=== PATIENT | male | born 1940 | race Caucasian/White ===

== ENCOUNTER 2020-04-04 18:04 | Outpatient (CLI) | payer MEDICARE, OTHER, SELFPAY ==
[2020-04-04 18:49] LABS: Basophils # 0.1 10^3/uL (0.0-0.1); Basophils % 0.6 %; Eosinophils # 0.2 10^3/uL (0.0-0.8); Eosinophils % 2.2 %; Hematocrit 45.1 % (42.0-52.0); Hemoglobin 14.1 g/dL (11.7-16.6); Lymphocytes # 1.5 10^3/uL (0.8-4.8); Lymphocytes % 13.8 %; Mean Corpuscular HGB Conc 31.3 g/dL (30.0-36.0); Mean Corpuscular Hemoglobin 28.4 pg (28.0-34.0); Mean Corpuscular Volume 90.9 fL (80-94); Monocytes # 0.6 10^3/uL (0.2-0.9); Monocytes % 5.1 %; Neutrophils # 8.35 10^3/uL (1.8-7.7); Neutrophils % 78.1 %; Nucleated Red Blood Cells % 0 %; Platelet Count 251 10^3/cmm (130-400); Red Blood Count 4.96 10^6/uL (4.1-5.3); Red Cell Distribution Width 15.1 % (12.1-15.1); White Blood Count 10.7 10^3/uL (4.0-10.0)
[2020-04-04 19:16] LABS: Chol HDL Ratio 3.91 mg/dL (1.0-5.00); Cholesterol 137 mg/dL (0-200); HDL Cholesterol 35 mg/dL (60-100); LDL Cholesterol Calculated 76 mg/dL (50-129); LDL HDL Ratio 2.17 RATIO (0.00-3.22); NT Pro B Type Natriuretic Pept 312 pg/mL (0-450); Triglycerides 132 mg/dL (0-150)
[2020-04-04 21:53] LABS: Estmated Average Glucose 148; Hemoglobin A1C 6.8 % (4.0-6.0)
== END 2020-04-04 18:05 | disposition home or self-care (01) ==
LOC: LAB 18:06
PROVIDERS: PCP Family Medicine; Visit Provider Nurse Practitioner Family
DX: I50.9 Heart failure, unspecified (principal)
CPT/HCPCS: 80061; 83036; 83880; 85025

== ENCOUNTER 2020-05-01 16:03 | Outpatient (CLI) | payer MEDICARE, OTHER, SELFPAY ==
[2020-05-01 17:08] LABS: Alanine Aminotransferase 11 U/L (0-41); Albumin Level 3.7 g/dL (3.5-5.2); Alkaline Phosphatase 100 IU/L (40-130); Anion Gap 14.8 (5-19); Aspartate Amino Transferase 14 U/L (0-40); Blood Urea Nitrogen 22 mg/dL (8-23); Calcium 8.6 mg/dL (8.5-10.5); Carbon Dioxide 29 mmol/L (22-29); Chloride 98 mmol/L (98-107); Globulin 3.5 g/dL (1.3-4.6); Glucose 223 mg/dL (65-115); Osmolality Calculated 294 mOsm/kg (285-295); Potassium 4.8 mmol/L (3.5-5.1); Sodium 137 mmol/L (136-145); Total Bilirubin 0.4 mg/dL (0.15-1.2); Total Protein 7.2 g/dL (6.6-8.7)
== END 2020-05-01 16:04 | disposition home or self-care (01) ==
LOC: LAB 16:08
PROVIDERS: PCP Family Medicine; Visit Provider Family Medicine
DX: I11.0 Hypertensive heart disease with heart failure (principal)
CPT/HCPCS: 80053

== ENCOUNTER 2021-03-30 11:55 | Emergency (ER) | payer MEDICARE, OTHER, SELFPAY ==
[2021-03-30 12:09] VITALS: BP 150/67; PULSE 60; RESP 18; TEMP 36.7; O2SAT 96; BMI 52.7
[2021-03-30 12:19] LABS: Glucose Point of Care 92 mg/dL (70-110)
[2021-03-30 12:27] VITALS: BP 160/68; PULSE 64; PULSE 76; RESP 18; TEMP 36.7; O2SAT 97
--- NOTE | 2021-03-30 12:45 | PC.NURSE ---
Bilateral lower extremities are wrapped to reduce swelling. No open areas noted, skin is dark in color. reports they have been that way for a long time. Legs are re wrapped. Pulse and sensation WNL before and after application.
--- NOTE | 2021-03-30 12:46 | ED_ITS ---
HPI - Extremity Problem General: Chief complaint: Extremity Injury, Lower Stated complaint: LACERATION BACK OF LEGS Time Seen by Provider: 03/30/21 12:04 History of Present Illness: HPI Narrative: Patient is an 80-year-old male comes to the ED with lesions on back of thighs bilaterally. Patient is morbidly obese and has a past medical history of hypertension, heart failure, diabetes type 2. Patient has been put on 2 L of oxygen at home, but patient says he does not use it all the time. Patient is unable to ambulate and gets around using a wheelchair. is present and says patient has been sitting in his wheelchair a lot over the past several weeks and approximately 10 days ago which she started noticing some skin breakdown in the back of the thighs bilaterally. Patient is currently in the process of getting a home health aide to come out and assist with care for patient during the week. Patient also has a hospital bed at his home that he refuses to use. Associated symptoms: Deny chest pain, fever(s) or rash Review of Systems Const: Denies: fever(s), chills or fatigue Eyes: Denies: change in vision or eye discomfort ENMT: Denies: throat pain, odynophagia, nasal discharge or nasal congestion Card: Denies: chest pain, palpitations, edema, swelling of feet/ankles, dyspnea on exertion or orthopnea Resp: Denies: dyspnea, productive cough or non-productive cough GI: Denies: abdominal pain, nausea, vomiting, diarrhea, constipation or hematochezia : Denies: flank pain, difficulty urinating, dysuria or hematuria Musc: Denies: neck pain, back pain or extremity swelling Skin/Breast: Reports: new lesions (early stage ulcers on back of thighs bilaterally); Denies: rash Neuro: Denies: headache(s), numbness in extremities or weakness in extremities PFS ED PFSH: Family History Mother Stroke Social History Smoking and tobacco status: former smoker Alcohol intake: never Household members: spouse Marital status: Physical Exam Const: COMMON NORMALS: patient oriented x3 and alert GENERAL APPEARANCE: cooperative and comfortable NUTRITIONAL APPEARANCE: obese morbidly obese HENMT: COMMON NORMALS: normocephalic HEAD & SCALP: normocephalic MOUTH: Normal oral and palatal mucosa present THROAT: posterior oropharynx normal and uvula midline Neck/C-Spine: COMMON NORMALS: supple GENERAL: Yes normal visual inspection Resp: COMMON NORMALS: normal respiratory effort, No retractions, No use of accessory muscles and clear to auscultation bilaterally AUSCULTATION: clear t o auscultation bilaterally Cardio: COMMON NORMALS: regular rate, regular rhythm, S1 normal heart sound present, S2 normal heart sound present, No gallops present (Cardio), No clicks present (Cardio), No murmurs present (Cardio) and Peripheral pulses 2+ throughout RATE: regular rate RHYTHM: regular rhythm HEART SOUNDS: S1 normal heart sound present and S2 normal heart sound present PERIPHERAL PULSES: Peripheral pulses 2+ throughout GI: COMMON NORMALS: Normal to inspection, nondistended, normoactive bowel sounds present, Soft to palpation, non-tender and no masses PALPATION: Yes Soft to palpation : COMMON NORMALS: Yes no CVA tenderness BLADDER/KIDNEY EXAM: Yes no CVA tenderness Back/Pelvis: COMMON NORMALS: no CVA tenderness Extremity: NARRATIVE EXTREMITY EXAM: Patient has early stage I pressure ulcers with limited skin breakdown on bilateral thighs. There is some surrounding erythema. No purulent drainage noted. Mild tenderness to palpation. GENERAL: Yes normal exam except as noted Neuro: COMMON NORMALS: patient oriented x3 and moves all extremities SENSORIUM/ORIENTATION: Yes alert Skin: NARRATIVE SKIN EXAM: Patient has early stage I pressure ulcers with limited skin breakdown on bilateral thighs. There is some surrounding erythema. No purulent drainage noted. Mild tenderness to palpation. GENERAL SKIN EXAM: dry skin Course Reevaluation(s): Reevaluation #1: Patient's wanted me to call her son to discuss discharge plans. I contacted Eulalio (patient's son) at the phone number listed in chart and spoke with him directly. I informed him of patient's discharge plan and care plan. He understood and agreed with plan. Time: 13:40 Vital Signs: Vital signs: Vital Signs Temperature 98.1 F 03/30/21 12:27 Pulse Rate 74 03/30/21 13:23 Respiratory Rate 18 03/30/21 13:23 Blood Pressure 166/74 03/30/21 13:23 Pulse Oximetry 95 03/30/21 13:23 MDM - Extremity (Nontraumatic) MDM Narrative: Medical decision making narrative: Patient is an 80-year-old male comes to the ED with lesions on back of right hand left thighs. Patient has a past medical history of diabetes type 2, hypertension, heart failure. Patient is on 2 L of oxygen at home. Exam of patient shows an early stage I pressure ulcers developing on right and left upper thighs with minimal skin breakdown. Patient's helps take care of patient. I have informed patient and patient's on how to prevent pressure ulcers. I placed an order with case management for patient be referred to wound care clinic for further evaluation. Patient was discharged home with a prescription for Bactrim and triple antibiotic ointment. was instructed on how to care for pressure ulcers. Patient was set up with an appointment at wound care clinic with Dr. Wright on April 05. Return to ED precautions given. Patient and patient's understood and agree with plan. Lab Data: Labs: Lab Results 03/30/21 12:16 POC Glucose 92 mg/dL mg/dL (70-110) Discharge Plan Discharge Patient Disposition: Home Clinical Impression: Pressure ulcer Qualifiers: Pressure injury location: thigh Pressure injury stage: stage 1 Laterality: unspecified laterality Qualified Code(s): L89.201 - Pressure ulcer of unsp ecified hip, stage 1 Condition: Stable Prescriptions: New Triple Antibiotic 3.5mg-400 unit- 5,000 unit/gram ointment 1 applic topical DAILY PRN (Reason: wound) Qty: 30 RF: 0 Bactrim DS 800-160 mg tablet 1 tab PO BID 7 Days Qty: 14 RF: 0 No Action escitalopram oxalate 10 mg tablet 10 mg PO DAILY RF: 0 amlodipine 10 mg tablet 10 mg PO DAILY RF: 0 lovastatin 20 mg tablet 20 mg PO DAILY RF: 0 metoprolol succinate 50 mg tablet extended release 24 hr 50 mg PO DAILY RF: 0 spironolactone 25 mg tablet 25 mg PO DAILY RF: 0 omeprazole 20 mg capsule,delayed release(DR/EC) 20 mg PO DAILY RF: 0 furosemide 80 mg tablet 80 mg PO DAILY RF: 0 glimepiride 4 mg tablet 4 mg PO BID RF: 0 Novolin N NPH U-100 Insulin 100 unit/mL suspension See Rx Instructions SUBCUT BID RF: 0 Discharge Orders: Discharge ED (Routine); Ordered 03/30/21 Ordered By: Eulalio Gutiérrez Referrals: Kari Wright DO [Emergency Department] - 04/05/21 8:30 am Jayce Flowers MD [Primary Care Provider] - Discharge Diet: Regular Discharge Activity: Increase activity as tolerated Patient Instructions: How to Turn a Person in Bed (DC), How to Prevent Pressure Injuries (ED), Acute Wound Care (ED), Pressure Injury (ED), How to Transfer a P erson Safely (DC), How to Help a Person Change Position Safely (DC), Chronic Wounds (ED) Activity Restrictions/Additional Instructions: Follow-up with medical provider as directed. You have an appointment with Dr. Wright at the wound care clinic at [address] [place] [address]. . take medications as prescribed. Return to the ER or your medical provider if condition worsens. Please read and understand discharge instructions. Thank you for choosing [facility] for your healthcare needs today. Please realize this is an emergency room and that we are providing you with a medical screening exam and this may not be complete and all inclusive of all the testing and or work up that you may need to determine your ailment or severity of your illness. It is very important that you follow up as instructed or that you return to the Emergency Department should you have concerns or if your condition changes or worsens in any way. Coding Level of Care Code ED [employer] Specialist for Andriy Fwrola Exam Comprehensive
[2021-03-30 13:23] VITALS: BP 166/74; PULSE 74; RESP 18; O2SAT 95
--- NOTE | 2021-03-30 13:36 | DCPLANNER ---
public works manager had message to schedule a follow up appointment for patient with Wound Care. public works manager called Wound Care, spoke with Cathy, gave clinic patients information. A follow up appointment was scheduled for Monday, April 05, [address] at 8:[address] Wright. public works manager gave ER physician the appointment information.
[2021-03-30] MEDS: sulfamethoxazole-trimeth DS 160-800 mg Tablet 1 TAB PO (13:57)
[2021-03-30 14:39] VITALS: BP 154/72; PULSE 76; RESP 18; TEMP 36.9; O2SAT 94
--- NOTE | 2021-05-06 07:57 | DCPLANNER ---
Patient had a follow up appointment scheduled for 04.05.21 with Wound Care - appointment was cancelled.
== END 2021-03-30 14:46 | disposition home or self-care (01) ==
PROVIDERS: Emergency Provider Physician Assistant; PCP Family Medicine
DX: L89.891 Pressure ulcer of other site, stage 1 (principal); Z79.84 Long term (current) use of oral hypoglycemic drugs; Z79.4 Long term (current) use of insulin; Z87.891 Personal history of nicotine dependence
CPT/HCPCS: 36416; 82962; 99283

== ENCOUNTER → 2021-09-01 12:15 | Outpatient (BNVA) | payer MEDICARE, SELFPAY | PROVIDERS: PCP Family Medicine; Visit Provider Internal Medicine | DX: I25.10 Atherosclerotic heart disease of native coronary artery without angina pectoris (principal); I11.0 Hypertensive heart disease with heart failure; I50.9 Heart failure, unspecified | CPT/HCPCS: 99213 ==